=== PATIENT | female | born 1985 | race Caucasian/White ===

== ENCOUNTER 2025-04-25 11:45 | Emergency (ER) | payer BC ==
[2025-04-25 13:38] LABS: Glucose, Urine (Dipstick) Normal (Negative); Leukocyte 25 (Negative); Protein, Urine (Dipstick) 100 mg/dl (Neg-Trace); Specific Gravity, Urine 1.010 (1.005-1.030)
[2025-04-25 13:42] LABS: Pregnancy Test - Urine (BHCG) Negative (Negative); Pregu Control Bar Appear? YES (CONTROL BAR)
[2025-04-25 13:43] LABS: Pregu Control Background? CLEAR/WHITE (CLR/WHITE)
[2025-04-25 14:01] LABS: Bacteria/HPF 2+ HPF (None Seen); CAUTI Indications for Culture Fever or rigors
[2025-04-25 14:03] LABS: Urine Culture Reflex No No
[2025-04-25 14:18] LABS: #Basophils 0.06 10x3/uL (0.0-0.2); #Eosinophils Less than 0.03 10x3/uL (0.0-0.5); #Monocytes 1.71 10x3/uL (0.0-1.1); #Neutrophils 12.24 10x3/uL (1.5-8.4); %Basophils 0.4 % (0.0-2.0); %Eosinophils 0.1 % (0.0-6.0); %Lymphocytes 12.7 % (18.0-47.0); %Monocytes 10.6 % (0.0-10.0); %Neutrophils 75.9 % (40.0-75.0); Hematocrit 38.7 % (34.9-44.5); Hemoglobin 12.8 g/dL (12.0-15.5); Mean Corpuscular Hemoglobin 30.7 pg (27.0-33.0); Mean Corpuscular Volume 92.8 fL (81.6-98.3); Platelet Count 205 10x3/uL (150-450); Red Blood Cell (RBC) Count 4.17 10x6/uL (3.90-5.03); White Blood Cell (WBC) Count 16.13 10x3/uL (3.5-10.5)
[2025-04-25] MEDS ORDERED: cefTRIAXone (ROCEPHIN) 2 GM VIAL ONE (14:26)
[2025-04-25 14:37] LABS: ALT (SGPT) 17 U/L (Less than 34); AST (SGOT) 20 U/L (11-34); Albumin 3.3 g/dL (3.1-4.5); Alkaline Phosphatase 61 U/L (40-110); Anion Gap 15 mmol/L (10-20); BUN (Urea Nitrogen) 6 mg/dL (7.0-18.7); Bilirubin, Total 0.9 mg/dL (0.3-1.2); Calc. Creatinine Clearance 0 mL/min (70-130); Calcium 8.3 mg/dL (7.8-10.44); Carbon Dioxide 25 mmol/L (22-29); Chloride 101 mmol/L (98-107); Globulin 3.2 g/dL (2.4-3.5); Glucose 86 mg/dL (70-105); Lipase 12 U/L (8-78); Potassium 3.5 mmol/L (3.5-5.1); Sodium 137 mmol/L (136-145)
[2025-04-25] MEDS ORDERED: Acetaminophen 500 MG TAB ONE (16:14)
[2025-04-25] MEDS ORDERED: Cefepime 2 GM VIAL ONE (16:54)
[2025-04-25] MEDS ORDERED: Ketorolac Tromethamine 30 MG (1 mL) VIAL ONE (16:54)
== END 2025-04-25 22:35 | disposition short-term general hospital (02) ==
LOC: CSHERS 11:45
DX: A41.9 Sepsis, unspecified organism (principal); N15.1 Renal and perinephric abscess; N10 Acute pyelonephritis
CPT/HCPCS: 74177; 76705; 80053; 81001; 81025; 83605; 83690; 85025; 86140; 87040; 87086; 87428; 96374; 96375; 96376; J0692; J0696; J1885; J3010